=== PATIENT | female | born 1990 | race Hispanic/Latino ===

== ENCOUNTER 2018-05-19 15:59 | Emergency (ER) | payer SELFPAY ==
[~2018-05-19 15:59] MED LIST: Iopamidol 370 76% 100 ML VIAL ONE; Sodium Chloride 0.9% 1,000 ML BAG ONE
[2018-05-19] MEDS ORDERED: Ondansetron ODT 4 MG TAB ONE (16:22)
[2018-05-19] MEDS ORDERED: Ondansetron HCl/PF 4 MG/2 ML Vial ONE (17:09)
[2018-05-19 17:12] LABS: BHCG - Serum Negative (NEGATIVE); Pregs Control Background? CLEAR/WHITE (CLR/WHITE); Pregs Control Bar Appear? YES (CONTROL BAR)
[2018-05-19 17:20] LABS: ALT (SGPT) 25 U/L (8-55); AST (SGOT) 21 U/L (5-34); Albumin 4.7 g/dL (3.5-5.0); Alkaline Phosphatase 91 U/L (40-150); Anion Gap 17 mmol/L (10-20); BUN (Urea Nitrogen) 9 mg/dL (7.0-18.7); Bilirubin, Total 0.5 mg/dL (0.2-1.2); Calc. Creatinine Clearance 0 mL/min (70-130); Calcium 9.1 mg/dL (7.8-10.44); Carbon Dioxide 17 mmol/L (22-29); Chloride 109 mmol/L (98-107); Estimated GFR-MDRD Greater than 90; Globulin 3.6 g/dL (2.4-3.5); Glucose 98 mg/dL (70-105); Lipase 36 U/L (8-78); Potassium 3.8 mmol/L (3.5-5.1); Protein, Total 8.3 g/dL (6.0-8.3); Sodium 139 mmol/L (136-145)
[2018-05-19 17:50] LABS: Band 2 % (5-11); Hemoglobin 15.8 g/dL (12.0-16.0); Lymphocytes 11 % (21-51); MDiff Complete? YES; Mean Corpuscular HGB CONC 33.2 g/dL (32.0-36.0); Mean Corpuscular Hemoglobin 28.6 pg (27.0-31.0); Mean Corpuscular Volume 86.3 fL (78.0-98.0); Mean Platelet Volume 7.1 fL (7.4-10.4); Monocytes 3 % (0-10); Neutrophil 81 % (42-75); Nucleated RBC 2 % (0); PLT Morphology Comment Appears Increased; Platelet Count 403 thou/uL (130-400); RBC Distribution Width 11.4 % (11.5-14.5); RBC Morphology Normal; Reactive Lymphocytes 3 % (0-10); Red Blood Cell (RBC) Count 5.52 mill/uL (4.20-5.40); White Blood Cell (WBC) Count 20.8 thou/uL (4.8-10.8)
[2018-05-19] MEDS ORDERED: metroNIDAZOLE 500 MG/100 ML BAG ONE (18:11)
[2018-05-19] MEDS ORDERED: Ciprofloxacin Lactate/D5W 400 mg/200 ml Premix ONE (18:11)
[2018-05-19 18:50] LABS: Bilirubin Negative (Negative); Blood, Urine Trace (Negative); Glucose, Urine (Dipstick) Negative (Negative); Leukocyte Small (Negative); Nitrite Negative (Negative); Protein, Urine (Dipstick) Negative (Neg-Trace); Urobilinogen 0.2 mg/dL (0.2-1.0); pH, Urine 5.5 (5.0-9.0)
[2018-05-19 18:51] LABS: Clarity Hazy (Clear); Specific Gravity, Urine 1.005 (1.002-1.036)
[2018-05-19 18:53] LABS: Bacteria/HPF Rare-Few HPF (None Seen); RBC/HPF 0-3 HPF (0-3); Squamous Epithelial 0-3 HPF (0-3)
--- NOTE | 2018-05-19 19:54 | CT ---
CT ABDOMEN AND PELVIS WITH IV CONTRAST: 05/19/18 HISTORY: Abdominal pain, vomiting. FINDINGS: The lung bases are clear. No free air or free fluid or lymphadenopathy seen in the abdomen or pelvis. No calcified gallstones are noted. The liver, spleen, pancreas, adrenal glands and kidneys are navya l. The uterus and ovaries are present. The small bowel loops are not abnormally dilated. The appendix is fluid filled, dilated with mild periappendiceal inflammatory changes. IMPRESSION: Acute appendicitis. Report was called over the telephone to Dr. Negrito Veliz in the Emergency Room at 6:07 p.m. POS: [facility]
== END 2018-05-19 18:45 | disposition short-term general hospital (02) ==
LOC: MADERS 15:59
DX: K35.80 Unspecified acute appendicitis (principal)
CPT/HCPCS: 74177; 80053; 81003; 81015; 83690; 84703; 85025; 96361; 96365; 96368; 96375; J0744; J2405; J7050; Q0162

== ENCOUNTER 2021-07-09 19:25 | Emergency (ER) | payer BC, SELFPAY ==
[2021-07-09] MEDS ORDERED: Ondansetron ODT 4 MG TAB ONE (21:01)
[2021-07-09] MEDS ORDERED: Guaifenesin DM 100-10/5 ML UDCUP ONE (21:01)
[2021-07-09] MEDS ORDERED: Ibuprofen 800 MG TAB ONE (21:01)
== END 2021-07-09 21:07 | disposition home or self-care (01) ==
LOC: MADERS 19:25
DX: J20.9 Acute bronchitis, unspecified (principal); M79.10 Myalgia, unspecified site; R11.2 Nausea with vomiting, unspecified
CPT/HCPCS: 99283; Q0162